=== PATIENT | male | born 1985 | race Caucasian/White ===

== ENCOUNTER 2021-09-11 13:38 | Emergency (ER) | payer OTHER, SELFPAY ==
[2021-09-11 13:53] VITALS: BP 141/106; PULSE 87; RESP 18; TEMP 37.1; O2SAT 99
--- NOTE | 2021-09-11 14:13 | ED.GENADULT ---
HPI - General Adult General Chief complaint: Ear Stated complaint: Ear and jaw pain Time Seen by Provider: 09/11/21 14:13 Source: patient Mode of arrival: ambulatory Limitations: no limitations History of Present Illness HPI narrative: 36-year-old male presented for complaint of left jaw and ear pain for 1 week. States he was seen at an urgent care last week, and diagnosed with tardive dyskinesia due to his Zoloft. He stopped taking the medication abruptly at that time. He has been taking ibuprofen without relief. He states the sharp pain he was experiencing is better. Now he endorses a steady constant throbbing and clicking/popping with any movement of his jaw. Also states his decreased hearing. Also endorses his jaw shifts to the right throughout the day after waking in the morning in alignment. Hx tympanoplasty left ear as child and T-tubes. Related Data Home Medications Medication Instructions Recorded Confirmed omeprazole magnesium [Prilosec OTC] 20 mg PO DAILY 09/11/21 09/11/21 Allergies Allergy/AdvReac Type Severity Reaction Status Date / Time No Known Allergies Allergy Verified 09/11/21 13:52 Review of Systems Review of Systems: CONSTITUTIONAL: Denies malaise, chills, or fever. EYES: Denies visual changes, redness, or discharge. ENT: Denies rhinorrhea, congestion, sinus pain, and sore throat. Reports ear/jaw pain CARDIOVASCULAR: Denies chest pain, palpitations, or edema. RESPIRATORY: Denies cough or dyspnea. GASTROINTESTINAL: Denies abdominal pain, nausea, vomiting, diarrhea SKIN: Denies rash or itching. MUSCULOSKELETAL: Denies myalgia. NEUROLOGIC: Denies headache. All systems reviewed & are unremarkable except as noted in HPI and below PMFSH Comments At time of signature, agree with nursing past medical, surgical, social and family history. There is no relevant family history pertinent to the presenting complaint Exam Narrative: GENERAL: Well-appearing, well-nourished, and in no acute distress. HEAD: Normocephalic EYES: PERRLA, conjunctivae clear ENT: Nares clear. Mucous membranes moist. Right TM pearly parks with dull light reflex, left TM unable to visualize due to cerumen; no tragal tenderness. Pain to preauricular area and left TMJ. Oropharynx not erythematous without lesions. Tonsils not enlarged and without exudate, no drooling, no hoarseness, no trismus, uvula midline. NECK: Supple. No lymphadenopathy CHEST: Clear to auscultation, breath sounds equal. No wheezing, rhonchi, rales, or stridor. HEART: Regular rate and rhythm. No murmur heard. SKIN: Warm, dry, no rash. NEURO: Alert and oriented x3. PSYCH: Normal mood and affect Course Course Emergency Course: Patient is aware of diagnosis, understands and agrees to treatment plan. Anticipatory guidance given. Patient agrees to follow-up as directed and is aware of reasons to seek care at the emergency department. Portions of this record may have been created with voice recognition software Level of Care: Express Care Visit Vital Signs Vital signs: Vital Signs Temperature 98.8 F 09/11/21 13:53 Pulse Rate 87 09/11/21 13:53 Respiratory Rate 18 09/11/21 13:53 Blood Pressure 141/106 H 09/11/21 13:53 Pulse Oximetry 99 09/11/21 13:53 Temperature 98.8 F 09/11/21 13:53 Pulse Rate 87 09/11/21 13:53 Respiratory Rate 18 09/11/21 13:53 Blood Pressure 141/106 H 09/11/21 13:53 Pulse Oximetry 99 09/11/21 13:53 Reviewed Procedures Ear Wax Removal Left Ear: Ear Wax Removal Date: 09/11/21 Cerumenolytic Used: other (Warm water/hydrogen peroxide) Results: Re-examined: some cerumen remains Ear Canal Exam: atraumatic Patient Tolerated Procedure: well and no complications Technique: ear canal irrigated and ear canal curetted Additional Comments: Minimal amount of soft earwax was removed, some cerumen remains. Medical Decision Making MDM Narrative Medical decision making narrat
== END 2021-09-11 14:49 | disposition home or self-care (01) ==
PROVIDERS: Emergency Provider Nurse Practitioner Family
DX: H92.02 Otalgia, left ear (principal); H61.22 Impacted cerumen, left ear; M26.602 Left temporomandibular joint disorder, unspecified
CPT/HCPCS: 69210; 99213; A9270; G0463

== ENCOUNTER 2021-09-17 10:03 | Emergency (ER) | payer OTHER, SELFPAY ==
[2021-09-17 10:09] VITALS: BP 143/105; PULSE 107; RESP 16; TEMP 36.6; O2SAT 99
--- NOTE | 2021-09-17 10:30 | ED.GENADULT ---
HPI - General Adult General Chief complaint: Ear Stated complaint: ear pain Source: patient Mode of arrival: ambulatory Limitations: no limitations History of Present Illness HPI narrative: Pt presents for evaluation of left ear pain for the past two weeks. He describes the pain as sharp. He was also having pain on the left side of his jaw. He went to an urgent care and states he was diagnosed with tardive dyskinesia. He stopped his zoloft. Pain in the jaw improved. He came here last week and had a cerumen impaction noted on exam. He was also told this could be TMJ. He has been taking tramadol and flexeril without considerable improvement in his symptoms. He has muffled hearing on left side. No drainage from the ear or tinnitus. 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 Related Data Home Medications Medication Instructions Recorded Confirmed omeprazole magnesium [Prilosec OTC] 20 mg PO DAILY 09/11/21 09/17/21 Allergies Allergy/AdvReac Type Severity Reaction Status Date / Time No Known Allergies Allergy Verified 09/17/21 10:09 Review of Systems Review of Systems: CONSTITUTIONAL: Denies fever, chills, or sweats. EYES: Denies visual changes, redness, or discharge. ENT: Reports left ear pain and decreased hearing in left ear. Denies rhinorrhea, congestion, or sore throat CARDIOVASCULAR: Denies chest pain, palpitations, or edema. RESPIRATORY: Denies cough or dyspnea. GASTROINTESTINAL: Denies abdominal pain, nausea, vomiting, or diarrhea. GENITOURINARY: Denies dysuria or hematuria. SKIN: Denies rash or itching. MUSCULOSKELETAL: Denies back pain, joint pain, or myalgia. NEUROLOGIC: Denies headache, numbness, dizziness, or weakness. PSYCHIATRIC: Denies anxiety or depression. [facility] Past Medical History Medical History (Updated 09/17/21 @ 11:45 by Jerry Lynne, OZZY, CORY) Depression GERD (gastroesophageal reflux disease) Surgical History Surgical History History of sinus surgery History of tympanoplasty Family History Family History Mother Breast cancer Father Malignant neoplasm of prostate Social History Social History Smoking status: Never smoker Alcohol intake: current Alcohol use details: rarely Substance use: never Gender identity (if verbalized by the patient): Male Spiritual care concerns: No Exam Narrative: GENERAL: Well-appearing, well-nourished, and in no acute distress. HEAD: Normocephalic, atraumatic. EYES: PERRLA and EOMI. ENT: Nares clear, no rhinorrhea or epistaxis. Mucous membranes moist. Oropharynx without tonsillar hypertrophy exudate or other lesions. Right TM with good light reflex. No erythema or middle ear fluid. There is some scarring noted to the right TM. I am unable to visualize left TM due to cerumen impaction NECK: Supple. No adenopathy or masses. No carotid bruits or JVD CHEST: Clear to auscultation. No respiratory distress. No wheezes rales or rhonchi HEART: Regular rate and rhythm. No murmur heard. Normal peripheral pulses. ABDOMEN: Soft, nontender, nondistended, normal active bowel sounds. EXTREMITIES: Normal range of motion. No edema. SKIN: Warm, dry, no rash. NEURO: No focal deficits. Alert and oriented x3. PSYCH: Normal mood and affect. Course Course Emergency Course: This is a 36-year-old male who presented with complaints of left-sided ear pain. On exam he has cerumen impaction. Attempted to irrigate ear and we were able to partially extract impacted cerumen. I used H2O2 and water. Debrox was used. I was unable to fully extract remaining cerumen with curette or alligator forceps. He will likely need debrox to be used several times at home due to firm consistency of remaining cerumen. I was unable to visualize TM so this
[2021-09-17] MEDS: CARBAMIDE PEROXIDE 6.5% OT SOLN 15 ML BTL 5 DROP LEFT EAR (11:09)
== END 2021-09-17 11:53 | disposition home or self-care (01) ==
PROVIDERS: Emergency Provider Nurse Practitioner
DX: H61.22 Impacted cerumen, left ear (principal); K21.9 Gastro-esophageal reflux disease without esophagitis
CPT/HCPCS: 69210; 99213; A9270; G0463